=== PATIENT | female | born 1955 | race Caucasian/White ===

== ENCOUNTER → 2017-04-03 10:20 | Outpatient (CLI) | payer BC | END | disposition home or self-care (01) | LOC: D.RAD 10:20 | DX: R06.02 Shortness of breath (principal) ==

== ENCOUNTER → 2017-10-22 10:04 | Outpatient (CLI) | payer MEDICARE | END | disposition home or self-care (01) | LOC: D.RAD 10:04 | DX: J98.11 Atelectasis (principal) ==

== ENCOUNTER → 2017-10-28 11:05 | Outpatient (CLI) | payer MEDICARE | END | disposition home or self-care (01) | LOC: D.US 11:05 | DX: R42 Dizziness and giddiness (principal) ==

== ENCOUNTER 2018-04-15 09:00 | Day surgery (SDC) | payer MEDICARE ==
[2018-04-14 11:43] LABS: HEMATOCRIT 36.8 % (36.0-48.0); HEMOGLOBIN 12.2 g/dL (12-16); MCH 28.6 pg (26.0-34.0); MCHC 33.2 g/dL (31.0-37.0); MCV 86.2 fL (80.0-100.0); MEAN PLATELET VOLUME 8.2 fL (7.4-10.4); RBC 4.27 10x6/uL (4.00-5.40); RDW 15.3 % (11.5-14.5); WBC 6.9 10x3/uL (4.8-10.8)
[~2018-04-15] VITALS: Ht 160 cm; Wt 98.4 kg
[~2018-04-15 09:00] MED LIST: FLUVOXAMINE MA100 M1 PO; JANUMET XR 50-1 EACH PO; LAMICTAL100 MG PO; LIPITOR40 MG PO; LOTENSIN40 MG PO; SEROQUEL300 MG PO; SYNTHROID125 MCG PO
[2018-04-15] MEDS ORDERED: CARBIDOPA-LEVO1 EACH PO (09:41)
[2018-04-15 09:47] VITALS: BP 109/48; Ht 160 cm; Wt 98.4 kg
[2018-04-15] MEDS ORDERED: HYDROCODON-ACE1 EAC7 PO (13:01)
[2018-04-15] MEDS ORDERED: DURICEF500 MG PO (13:01)
[2018-04-15] MEDS ORDERED: Transderm-Scop 1.5MG TRANSDERM (13:01)
--- NOTE | 2018-04-15 16:59 | OP ---
PATIENT NAME: KELLEN HESS MEDICAL RECORD: [id number] :53 [facility] AD[facility] DATE: SURGEON: SOPHIA PRATT DO DATE OF OPERATION: 04/15/2018 PROCEDURE PERFORMED: Right endoscopic carpal tunnel release. PREOPERATIVE DIAGNOSIS: Right carpal tunnel syndrome. POSTOPERATIVE DIAGNOSIS: Right carpal tunnel syndrome. INDICATIONS: Ms. Hess is a 62-year-old female, who had her right hand going numb and waking her up at night, to go to sleep, when she was talking on the phone. She was tired of dealing with the pain. She had a nerve conduction study, which revealed carpal tunnel syndrome on the right. I informed her of the risks and benefits of the procedure including infection, bleeding, damage to nerves and vessels, need for further surgery. She was okay with the risks and signed the consent. SURGEON: Sophia Pratt DO DESCRIPTION OF PROCEDURE: The patient was taken to the operative suite, laid in supine position, given 2 grams of Ancef preoperatively. The right upper extremity was prepped and draped in sterile fashion with a tourniquet under the drapes, above the elbow. A time-out was performed. Everyone was in agreement with the correct side, site, patient and procedure. The right upper extremity was then exsanguinated with an Esmarch and the tourniquet was inflated to 250 mmHg for 10 minutes. The Esmarch was then taken down and the incision was marked out over the wrist crease and 15 blade was used to make the incision through the skin and then Ragnells were used to bluntly dissect down to the carpal tunnel. The forearm fascia was released from distal to proximal at that time and then the dilator was used to open up the carpal tunnel. The sheath was then entered into the carpal tunnel and a rasp and a probe were used to clean off the transverse carpal ligament. The camera was entered in prior to that giving a nice view of just the transverse carpal ligament. The blade was then entered and raised up and transected the transverse carpal ligament as fat herniated down into the carpal tunnel. Everything was removed at that time. A pickup and scissors were used to release any remaining fibers in the transverse carpal ligament. This was done under direct loupe magnification. The tourniquet was let down and any bleeding was coagulated at that time. Pressure was held on the wrist for a small bleeder. Once this was stopped, the incision was closed with 5-0 Monocryl in inverted interrupted fashion. Steri-Strip was placed on the wound. Adaptic, 4 x 4's, Kerlix, and Coban was lightly wrapped on the hand at the wrist. The patient was awakened and taken to recovery in stable condition. Blood loss was minimal. COMPLICATIONS: None. TRANSINT:[id number] Voice Confirmation ID: [id number] DOCUMENT ID: [id number] OPERATIVE REPORT [id number] KELLEN HESS,SOPHIA Lucas DO at 1659 CC: [id number] DICTATION DATE: 04/15/18 1305 MANAGER INTEGRATION: 04/15/18 1321 [facility] 04/15/18 [id number] [place] [address]
== END 2018-04-15 15:15 | disposition home or self-care (01) ==
LOC: D.OPS 09:00 → D.PAN 14:15 → D.OPS 15:15
PROVIDERS: Anesthesiology
DX: G56.01 Carpal tunnel syndrome, right upper limb (principal); Z01.812 Encounter for preprocedural laboratory examination

== ENCOUNTER 2018-06-20 06:45 | Day surgery (SDC) | payer MEDICARE ==
[2018-06-18 14:22] LABS: HEMATOCRIT 36.2 % (36.0-48.0); HEMOGLOBIN 12.1 g/dL (12-16); MCH 29.1 pg (26.0-34.0); MCHC 33.4 g/dL (31.0-37.0); MEAN PLATELET VOLUME 8.4 fL (7.4-10.4); RBC 4.16 10x6/uL (4.00-5.40); RDW 14.5 % (11.5-14.5); WBC 6.9 10x3/uL (4.8-10.8)
[2018-06-18 14:30] LABS: CALC OSMOLALITY 280 mosm/kg (275-300); CALCIUM 9.6 mg/dL (8.5-10.1); CARBON DIOXIDE 28.2 mmol/L (21.0-32.0); CHLORIDE - SERUM 102 mmol/L (98-107); CREATININE - SERUM 0.8 mg/dL (0.6-1.3); GLUCOSE 117 mg/dL (74-106); SODIUM 140 mmol/L (136-145); UREA NITROGEN 14 mg/dL (7-18); eGFR NON AFRICAN AMERICAN 77 mL/min (90-120)
[~2018-06-20] VITALS: Ht 160 cm; Wt 101.6 kg
[~2018-06-20 06:45] MED LIST changes: +CARBIDOPA-LEVO1 EACH PO; +DURICEF500 MG PO; +HYDROCODON-ACE1 EAC7 PO; +Transderm-Scop 1.5MG TRANSDERM
[2018-06-20 07:27] VITALS: BP 118/73; Ht 160 cm; Wt 101.6 kg
[2018-06-20] MEDS ORDERED: DURICEF500 MG PO (09:32)
[2018-06-20] MEDS ORDERED: HYDROCODON-ACE1 EAC7 PO (09:32)
--- NOTE | 2018-06-20 12:08 | OP ---
PATIENT NAME: KELLEN HESS MEDICAL RECORD: [id number] :53 LOCATION:[facility] ADMISSION DATE: SURGEON: SOPHIA PRATT DO DATE OF OPERATION: 06/20/2018 PROCEDURE PERFORMED: Left endoscopic carpal tunnel release. PREOPERATIVE DIAGNOSIS: Left carpal tunnel syndrome. POSTOPERATIVE DIAGNOSIS: Left carpal tunnel syndrome. INDICATIONS: Ms. Hess is a 62-year-old female that underwent right carpal tunnel surgery earlier last year in 2018. She had a nerve conduction study done, which indicated right carpal tunnel and she had that released. The left one started acting the same. She had numbness and tingling into the first 3 fingers and it would wake her up at night. She started wearing a wrist brace. This did not help. Due to the similar symptoms she had it on the right, she did not want to get a nerve conduction study, but she wanted it released. I informed her that we cannot predict the outcome as well without getting a nerve conduction study, but she was okay with that risk. She was also okay with the risks of damage to nerves, vessels, and arteries in the area as well as need for further surgery, infection and she signed the consent. SURGEON: Sophia Pratt DO DESCRIPTION OF PROCEDURE: The patient was taken to the operative suite, laid in supine position, given general anesthetic and LMA was placed. She was given 2 grams Ancef preoperatively. Left upper extremity was prepped and draped in sterile fashion. A timeout was performed, everyone was in agreement of the correct side, site, patient, and procedure. An incision then began over the wrist crease over the palmaris longus tendon and just through the skin and then Ragnells were used to bluntly dissect down to the carpal tunnel itself. The forearm fascia was released from distal to proximal at that site and then the dilators were put into the carpal tunnel. Once the final dilator was placed, the sheath was placed into the carpal tunnel. Then, the camera was put in through the sheath. The lights were turned off and the transverse carpal ligament was viewed. It was cleaned off with a probe and rasp and then a knife blade was brought in through the sheath, raised up and transected the transverse carpal ligament, fat herniating down into the carpal tunnel ensuring good release. The lights were then turned on and the sheath and blade and the camera were removed and it was reinspected under direct loupe magnification. The fibers that were left to contact were spread with scissors, ensuring a good release. The tourniquet was then let down to 8 minutes that had been inflated prior to starting the surgery 250 mmHg after the left upper extremity was exsanguinated with an Esmarch, it was up for a total of 8 minutes. The site was then injected with 0.25% Marcaine with epinephrine. Then, the site was closed with 5-0 Monocryl with inverted interrupted stitches and a Steri-Strip was placed over the wound. Adaptic, 4 x 4's, Kerlix, and Coban was then placed on the wound. The patient was then awakened and taken to recovery in stable condition. COMPLICATIONS: None. TRANSINT:[id number] Voice Confirmation ID: [id number] DOCUMENT ID: [id number] OPERATIVE REPORT [id number] KELLEN HESS,SOPHIA Lucas DO at 1208 CC: [id number] DICTATION DATE: 06/20/18 0937 DEGREASING WHEEL OPERATOR: 06/20/18 1047 PRE [facility] [address] [place] [address]
== END 2018-06-20 12:30 | disposition home or self-care (01) ==
LOC: D.OPS 06:45 → D.PAN 09:05 → D.OPS 09:15 → D.PAN 10:00 → D.OPS 10:00
PROVIDERS: Anesthesiology; ATTEND Orthopaedic Surgery
DX: G56.02 Carpal tunnel syndrome, left upper limb (principal); Z01.812 Encounter for preprocedural laboratory examination

== ENCOUNTER → 2020-09-21 07:36 | Outpatient (CLI) | payer MEDICARE ==
[2020-03-10 09:44] VITALS: BMI 38.6
== END | disposition home or self-care (01) ==
LOC: D.US 07:36
PROVIDERS: ATTEND Internal Medicine Gastroenterology
DX: R11.0 Nausea (principal); R10.31 Right lower quadrant pain